=== PATIENT | male | born 1995 | race Caucasian/White ===

== ENCOUNTER 2017-03-14 21:48 | Emergency (ER) | payer BC ==
[~2017-03-14] VITALS: Ht 167.6 cm; Wt 69.4 kg
[2017-03-14 21:51] VITALS: TEMP 37; Ht 167.6 cm; Wt 69.4 kg
[2017-03-14] MEDS ORDERED: HYDROmorphone INJ 1 MG/ML SYR IV STA (22:08)
[2017-03-14] MEDS ORDERED: CEFAZOLIN SOD 1000MG/55 ML D5W IV STA (22:08)
[2017-03-14] MEDS ORDERED: DIPHTHERIA/TETANUS/PERTUSSIS 0.5 ML SYR/VIAL IM. ONE (22:15)
--- NOTE | 2017-03-14 22:15 | EMERGENCY ROOM VISIT NOTE ---
History Report prepared by Mary: Rachael Pichardo Under the Supervision of: Dr. Ahmet Whitney M.D. First contact with patient: 22:04 Chief Complaint: FINGER PAIN Stated Complaint: FINGER INJURY History of Present Illness The patient is a 21 year old male who presents to the Emergency Room with complaints of a left middle finger injury occurring shortly prior to arrival. The patient reports that he got his finger caught in a wench that he was putting on his truck. He rates the pain at a 10/10. The patient denies other injuries. The patient is right-handed. He had a penicillin allergy as a child with a rash. Source of History: patient Onset: shortly prior to arrival Position: finger(s) (left middle) Symptom Intensity: rated at a 10/10 Quality: other (injury) Note: denies any other symptoms Review of Systems See HPI for pertinent positives & negatives. A total of 6 systems reviewed and were otherwise negative. Past Medical & Surgical Medical Problems: (1) Skin problem Family History FH: kidney disease FHx: cancer FHx: heart disease Hypertension Social History Smoking Status: Never Smoker Occupation Status: student Current/Historical Medications Scheduled Cephalexin Monohydrate (Keflex), 500 MG PO QID Scheduled PRN Oxycodone Immediate Rel Tab (Roxicodone Ir), 1-2 TAB PO Q4H PRN for Severe Pain Allergies Coded Allergies: Penicillins (Unverified Allergy, Mild, 03/14/17) Physical Exam Vital Signs Date Time Temp Pulse Resp B/P (MAP) Pulse Ox O2 Delivery O2 Flow Rate FiO2 03/15/17 00:04 89 16 151/96 97 Room Air 03/14/17 22:35 85 16 171/114 97 Room Air 03/14/17 21:51 37.0 72 24 171/109 99 Room Air Physical Exam GENERAL: Patient is well appearing and in no acute distress. Crushed injury to distal aspect of second and third digits of left hand. Avulsion of left second fingernail with some mild abrasions around it. Laceration with open fracture of distal third digit just distal to DIP joint . Intact skin on the ulnar aspect of the finger HEENT: No acute trauma, normocephalic atraumatic, mucous membranes moist, no nasal congestion, no scleral icterus. NECK: No stridor, no adenopathy, no meningismus, trachea is midline. BACK: No midline tenderness, no CVA tenderness EXTREMITIES: Normal motion all extremities, no cyanosis, no edema. NEUROLOGIC: Alert and oriented, no acute motor or sensory deficits, no focal weakness, cranial nerves grossly intact. SKIN: No rash, no jaundice, no diaphoresis. Medical Decision & Procedures ER Provider Diagnostic Interpretation: X ray results are stated below per my interpretation and the radiologist's interpretation. LEFT SECOND AND THIRD FINGERS CLINICAL HISTORY: Pain status post trauma COMPARISON: None DISCUSSION: There is an acute transverse fracture involving the distal phalanx of the third finger at the junction of the proximal and middle one third. The fracture is mildly comminuted. There is an overlying soft tissue injury. There is 42 degrees of vertex dorsal angulation at the fracture site. No fractures or dislocations of the second finger are visualized. There is soft tissue edema involving the distal aspect of the second finger. IMPRESSION: 1. Mildly comminuted angulated fracture involving the distal phalanx of the third finger with an overlying soft tissue injury. 2. No fractures of the second/index finger are visualized. Electronically signed by: Genaro Bolden M.D. 03/14/2017 10:41 PM Dictated Date/Time: 03/14/2017 10:38 PM Medications Administered Medications (Trade) Dose Ordered Sig/Winston Route Start Time Stop Time Status Last Admin Dose Admin Cefazolin Sodium (Ancef 1000mg/55 ml D5W) 2,000 mg NOW STAT IV 03/14/17 22:08 03/14/17 22:10 DC 03/14/17 22:19 2,000 MG Hydromorphone HCl (Dilaudid Inj) 1 mg NOW STAT IV 03/14/17 22:08 03/14/17 22:10 DC 03/14/17 22:18 1 MG Diphtheria/ Pertussis/Tetanus Vacc (Adacel Inj) 0.5 ml ONCE ONCE IM. 03/14/17 22:15 03/14/17 22:16 DC 03/14/17 22:19 0.5 ML Oxycodone HCl (Roxicodone Immediate Rel 5MG Home Pack) 1 homepack UD ONCE PO 03/15/17 00:00 03/15/17 00:01 DC 03/15/17 00:09 1 HOMEPACK ED Course 2200: The patient was evaluated in room C12B. A complete history and physical exam was performed. 2207: Ordered Dilaudid Inj 1 mg IV, Cefazolin Sodium 2,000 mg IV. 2214: Ordered Adacel Inj 0.5 ml IM. 2229: Discussed the patient's case with Dr. Leung. The patient will be evaluated for further treatment and disposition. 2299: Ordered Dilaudid Ink 1 mg IV. 0000: Oxycodone HCl 1 homepack PO. 0030: Reevaluated the patient. Discussed results and discharge instructions: He verbalized understanding and agreement. The patient is ready for discharge. Medical Decision Medication Reconciliation: I attest that I have personally reviewed the patient 's current medication list. Blood pressure screening: Patient was found to have an elevated blood pressure and was referred to their primary doctor for recheck and further treatment. 21 yr old male with crush injury to left hand resulting in open distal 3rd digit and nailbed injury to 2nd. Ortho in to repair. Reviewed with patient wound care and plan to follow up with Ortho in 4 days. RTED instructions revealed. Tetanus, abx given here. Keflex as outpatient. Reviewed restrictions on narcotics which he notes he had with jaw surgery previously. Consults Time Called: 2214 Consulting Physician: Dr. Leung Returned Call: 2229 Discussed the patient's case. The patient will be evaluated for further treatment and disposition. Impression Primary Impression: Open fracture of distal phalanx of finger of left hand Additional Impression: [id number] (DTP) vaccination Scribe Attestation The scribe's documentation has been prepared under my direction and personally reviewed by me in its entirety. I confirm that the note above accurately reflects all work, treatment, procedures, and medical decision making performed by me. Departure Information Dispostion Home / Self-Care Prescriptions Oxycodone Immediate Rel Tab (ROXICODONE IR) 5 Mg Tab 1-2 TAB PO Q4H Y for Severe Pain, #20 TAB Prov: Ahmet Whitney M.D. 03/15/17 Cephalexin Monohydrate (KEFLEX) 500 Mg Cap 500 MG PO QID for 10 Days, #40 CAP Prov: Ahmet Whitney M.D. 03/15/17 Referrals Donna White D.O. (PCP) Patient Instructions My [facility] Additional Instructions You have received a narcotic pain medication prescription. These medications may cause drowsiness and should not be used with other sedative medications. Do not drive, drink alcohol, perform dangerous activities, nor make important decisions after taking these medications. custodial use or inappropriate use may lead to addiction. Keep hand elevated. Avoid any caffeine containing products as them may decrease blood flow. Do not smoke nor use smokeless tobacco. Do not apply ice to hand. Monitor for severe pain, fevers, redness or bleeding through dressing. We are always here to help. Follow up with Orthopedics on Sunday 03/18. Call tomorrow for appointment time. Problem Qualifiers
--- NOTE | 2017-03-14 22:42 | DIAGNOSTIC IMAGING REPORT ---
LEFT SECOND AND THIRD FINGERS CLINICAL HISTORY: Pain status post trauma COMPARISON: None DISCUSSION: There is an acute transverse fracture involving the distal phalanx of the third finger at the junction of the proximal and middle one third. The fracture is mildly comminuted. There is an overlying soft tissue injury. There is 42 degrees of vertex dorsal angulation at the fracture site. No fractures or dislocations of the second finger are visualized. There is soft tissue edema involving the distal aspect of the second finger. IMPRESSION: 1. Mildly comminuted angulated fracture involving the distal phalanx of the third finger with an overlying soft tissue injury. 2. No fractures of the second/index finger are visualized. Electronically signed by: Genaro Bolden M.D. 03/14/2017 10:41 PM Dictated Date/Time: 03/14/2017 10:38 PM
[2017-03-14] MEDS ORDERED: LIDOCAINE HCL 2% LOCAL 20 ML VIAL INFIL ONE (23:00)
[2017-03-14] MEDS ORDERED: HYDROmorphone INJ 1 MG/ML SYR IV PRN (23:00)
[2017-03-15] MEDS ORDERED: OXYCODONE IR HOME PACK PO ONE
[2017-03-15] MEDS ORDERED: CEPH500C2 PO (00:02)
[2017-03-15] MEDS ORDERED: OXYC1TAB3 PO (00:02)
[2017-03-15 00:04] VITALS: BP 151/96; PULSE 89; O2SAT 97
--- NOTE | 2017-03-15 00:04 | Orthopedic Consultation ---
Orthopedic Consultation Date of Consultation: Mar 15, 2017. Attending Physician: rosi Reason for Consultation: crush index an long fingers with long distal phalanx open fx/soft tissue compromise /nerve dysfunction History of Present Illness caught fingers in a power wench Past Medical/Surgical History see above/hx mandible fx Family History FH: kidney disease FHx: cancer FHx: heart disease Hypertension Social History [employer] student Smoking Status: Never Smoker Smokeless Tobacco Use: No Alcohol Use: socially Drug Use: none Marital Status: single Housing Status: lives with family Occupation Status: student Allergies Coded Allergies: Penicillins (Unverified Allergy, Mild, 03/14/17) Home Medications Scheduled Cephalexin Monohydrate (Keflex), 500 MG PO QID Scheduled PRN Oxycodone Immediate Rel Tab (Roxicodone Ir), 1-2 TAB PO Q4H PRN for Severe Pain Current Inpatient Medications Current Inpatient Medications Medications (Trade) Dose Ordered Sig/Winston Route Start Time Stop Time Status Last Admin Dose Admin Hydromorphone HCl (Dilaudid Inj) 1 mg Q15M PRN IV 03/14/17 23:00 03/28/17 22:59 Oxycodone HCl (Roxicodone Immediate Rel 5MG Home Pack) 1 homepack UD ONCE PO 03/15/17 00:00 03/15/17 00:01 Review of Systems Constitutional: + problem reported, No fever, No chills, No sweats, No weight loss, No weakness, No fatigue Eyes: No worsening of vision, No eye pain, No redness, No discharge, No diplopia, No problem reported ENT: No hearing loss, No unusual epistaxis, No nasal symptoms, No sore throat, No tinnitus, No dental problems, No trouble swallowing, No problem reported Respiratory: No cough, No sputum, No wheezing, No shortness of breath, No dyspnea on exertion, No dyspnea at rest, No hemoptysis, No problem reported Cardiovascular: No chest pain, No orthopnea, No PND, No edema, No claudication , No palpitations, No problem reported Abdomen: No pain, No nausea, No vomiting, No diarrhea, No constipation, No GI bleeding, No problem reported Musculoskeletal: + joint pain, + muscle pain, + swelling, + calf pain, + problem reported Genitourinary - Male: No hematuria, No dysuria, No urinary frequency, No urinary urgency, No urinary hesitancy, No urinary retention, No urinary incontinence, No penile discharge, No lesions, No impotence, No problem reported Neurologic: No memory loss, No paralysis, No weakness, No numbness/tingling, No vertigo, No balance problems, No problem reported Endocrine: No fatigue, No excessive thirst, No excessive urination, No problem reported Integumentary: No rash, No itch, No new/changing skin lesions, No color change , No bleeding, No problem reported Physical Exam Date Time Temp Pulse Resp B/P (MAP) Pulse Ox O2 Delivery O2 Flow Rate FiO2 03/14/17 22:35 85 16 171/114 97 Room Air 03/14/17 21:51 37.0 72 24 171/109 99 Room Air General Appearance: + mild distress Head: normocephalic, atraumatic Eyes: normal inspection ENT: normal ENT inspection Neck: supple Respiratory/Chest: chest non-tender Cardiovascular: regular rate, rhythm Abdomen/GI: non tender, soft Extremities/Musculoskelatal: + pertinent finding (avulsion index and long fingers DIP level) Neurologic/Psych: director of direct marketing II-XII nml as tested, no motor/sensory deficits, alert Skin: + pertinent finding (pallor long avusion but with some blood flow long finger/index good flow) Assessment & Plan Digital blocks/ I/D repair nail beds and flaps index and long with intrinsic plus splint
--- NOTE | 2017-03-15 01:10 | [facility] Operative Report ---
Operative Report Operative Date Mar 15, 2017. Pre-Operative Diagnosis crush avulsion injury left long and index fingers with flap compromise long finger Post-Operative Diagnosis same Procedure(s) Performed I/D repair nail plates x2 and laceration avulsion od index and long fingers dip level Surgeon rosi Estimated Blood Loss trace Findings index flap good vascular supply nail bed laceration oblique 1cm .....long flap ulnar based sluggish flow with complete nail avulsion and distal phalanx fracture. Fluids none Specimens none Drains none Anesthesia 2% lidocaine 15cc Complication(s) None Disposition Description of Procedure I/D after digital blocks with repair of nail plate and flaps using 3-0 vicryl and 3-0 nylon each digit.DIP level. 1cm each digit. I attest to the content of the Intraoperative Record and any orders documented therein. Any exceptions are noted below.
--- NOTE | 2017-03-25 16:32 | [facility] Operative Report ---
Operative Report Date of Service Mar 14, 2017. Operative Report Preoperative diagnosis: Crush and avulsion injury left long and index fingers with flap compromise long finger Postop diagnosis: Same Surgeon Xochitl Vaughan none Perioperative situation first his fingers and a power takeoff type mechanism/ wench and injured the left long and index fingers with significant disruption to the soft tissue. As involvement of nail plate soft tissue and flap compromise. Discussed with him in detail regarding trying to repair these and see how things worked out. He understands that they may not survive and may require amputation. Operation repair/Irrigation and debridement of nail plates index and long finger with soft tissue laceration repair index and long finger DIP level left upper extremity index and long fingers. Procedure after patient probably identify consent verified that he was given digital blocks to get his fingers to be comfortable use 2% plain lidocaine 5 cc and Percent plain Marcaine 5 cc. Once the fingers were numb there were then irrigated with diluted Betadine and saline. Nailplate was then repaired with 3- 0 Vicryl.'s was carried out first on the index finger and then on the long finger. Soft tissue repair of the skin was then carried out with 3-0 nylon again index followed by long finger. Length of the lacerations were proximally 1-1/2 cm in each digit. Once the repair was complete the wounds were then irrigated and cleansed and Adaptic placed with a functional splint in the intrinsic plus position. Patient was advised to avoid caffeine products struck the products tobacco products and cold. This was suggested in order to improve his potential survival of the flaps based on poor vascular baseline. She was instructed to take his antibiotics take his Tylenol and ibuprofen and follow-up in 3-4 days for dressing change. I attest to the content of the Intraoperative Record and any orders documented therein. Any exceptions are noted below.
== END 2017-03-15 00:11 | disposition home or self-care (01) ==
LOC: EDBD 21:48 → C.EDC 21:51
DX: S62.663A Nondisplaced fracture of distal phalanx of left middle finger, initial encounter for closed fracture (principal); S61.303A Unspecified open wound of left middle finger with damage to nail, initial encounter; S61.301A Unspecified open wound of left index finger with damage to nail, initial encounter; M79.645 Pain in left finger(s); W23.1XXA Caught, crushed, jammed, or pinched between stationary objects, initial encounter; Y92.89 Other specified places as the place of occurrence of the external cause

== ENCOUNTER → 2017-04-15 | Outpatient (CLI) | payer BC ==
[~2017-04-15] MED LIST: OXYC1TAB3 PO
--- NOTE | 2017-04-15 10:54 | DIAGNOSTIC IMAGING REPORT ---
LEFT FINGER(S) MIN 2 VIEWS HISTORY: 21 years-old Male follow-up exam LEFT 2ND AND 3RD FINGER FRACTURES. COMPARISON: Radiographs 03/14/2017 TECHNIQUE: 3 views of the left fingers FINDINGS: There has been mild healing of the subacute transverse fracture involving the third distal phalanx with persistent mild apex dorsal angulation which appears unchanged. There is no significant displacement. Soft tissue injury within the region of the nailbed is again seen with decreased amount of soft tissue swelling. 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 No additional acute fracture or dislocation identified. Negative for radiopaque foreign body. IMPRESSION: 1. Mild healing of the subacute distal third phalangeal fracture with persistent mild apex dorsal angulation. 2. Decreased amount of soft tissue swelling. 3. 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 The above report was generated using voice recognition software. It may contain grammatical, syntax or spelling errors. Electronically signed by: Louie Covarrubias M.D. 04/15/2017 10:52 AM Dictated Date/Time: 04/15/2017 10:49 AM
== END | disposition home or self-care (01) ==
LOC: C.RDSM 12:29
PROVIDERS: ATTEND Physician Assistant
DX: S62.633B Displaced fracture of distal phalanx of left middle finger, initial encounter for open fracture (principal); X58.XXXA Exposure to other specified factors, initial encounter

== ENCOUNTER 2018-04-17 22:16 | Emergency (ER) | payer OTHER ==
[~2018-04-17] VITALS: Ht 167.6 cm; Wt 65.4 kg
[2018-04-17 22:18] VITALS: Ht 167.6 cm; Wt 65.4 kg
[2018-04-17] MEDS ORDERED: LIDOCAINE/EPINEPHRINE 1% 20 ML VIAL INFIL ONE (22:45)
[2018-04-17 22:51] VITALS: BP 134/84; PULSE 77; TEMP 37; O2SAT 97
[2018-04-17] MEDS ORDERED: POLYSOL50 OPB (22:58)
--- NOTE | 2018-04-18 04:12 | EMERGENCY ROOM VISIT NOTE ---
ED Visit Note First contact with patient: 22:30 CHIEF COMPLAINT: Back laceration HISTORY OF PRESENT ILLNESS: This 22-year-old patient presents to the emergency department with father after cutting the back on a piece of metal when he fell out of his truck tonight. The bleeding has not stopped. Denies weakness or numbness of the back arms or legs. The patient has full range of motion of the all extremities. The patient rates the pain as mild and 2/10. The patient denies any other injuries. The patient's tetanus shot is up to date. REVIEW OF SYSTEMS: A 6 system review of systems was completed with positives and pertinent negatives listed in the HPI. ALLERGIES: Penicillin MEDICATIONS: None PMH: None SOCIAL HISTORY: No drug use PHYSICAL EXAM: Vital Signs: Reviewed Nurse's notes, vital signs stable. GENERAL : Pleasant male, in no acute distress, well developed, well nourished. SKIN: There is a for cm long laceration on the posterior aspect of the right upper mid back. The edges gape apart with traction. There is no foreign material in the wound and it looks clean. There is bleeding. No deep structures such as tendons, bones, or significant blood vessels are seen in the base of the wound. Extension and flexion of the extremity is full and strong. Full range of motion of the extremity. Capillary refill less than 2 seconds. Normal sensation to light and sharp touch. EMERGENCY DEPARTMENT COURSE: I examined the patient. Using sterile technique the wound was cleansed with Betadine. 5 ml of 1% buffered lidocaine with epi was used to anesthetize the patient. The area was sterilely draped. Once the patient was anesthetized, the wound was copiously irrigated under pressure with sterile saline. The wound was explored and there were no deep structures injured. The laceration was repaired using 13 mary. The patient tolerated the procedure well. Hemostasis was achieved. The area was cleaned with sterile saline and dressed with bacitracin ointment and bandage. The patient was discharged home in good condition. DIAGNOSIS: Back laceration DISCHARGE INSTRUCTIONS & TREATMENT: As below Current/Historical Medications Scheduled Polymyxin/Trimethoprim Oph (Polytrim Oph), 1 DROP OPB QID Allergies Coded Allergies: Penicillins (Verified Allergy, Intermediate, RASH, 02/25/18) Vital Signs Date Time Temp Pulse Resp B/P (MAP) Pulse Ox O2 Delivery O2 Flow Rate FiO2 04/17/18 22:51 37.0 77 18 134/84 97 04/17/18 22:18 37.0 77 18 134/84 97 Room Air Departure Information Impression Primary Impression: Laceration of back Dispostion Home / Self-Care Condition GOOD Forms HOME CARE DOCUMENTATION FORM, IMPORTANT VISIT INFORMATION Patient Instructions My [facility], ED Laceration All Additional Instructions Keep wound clean and dry. Do not allow any crusting or dried blood to accumulate on mary. If this occurs, use a 1:1 solution of hydrogen peroxide/ water on a Q-tip to clean the wound. Use an antibiotic ointment for 3-4 days, then let wound dry. Stable removal in 10-12 days. Return sooner for any signs of infection (increasing redness, swelling, drainage). Ice and elevate for swelling and pain. Ibuprofen 600 mg and Tylenol 1000 mg every 6 hrs for pain. Keep covered when in sun until sutures removed then SPF 50 or higher for one year. Vitamin E oil if desired two weeks after suture removal for reduction of scar
== END 2018-04-17 22:52 | disposition home or self-care (01) ==
LOC: C.EDB 22:16
DX: S21.211A Laceration without foreign body of right back wall of thorax without penetration into thoracic cavity, initial encounter (principal); W26.8XXA Contact with other sharp object(s), not elsewhere classified, initial encounter; Z88.0 Allergy status to penicillin